=== PATIENT | male | born 1950 | race Caucasian/White ===

== ENCOUNTER 2021-12-13 16:00 | Observation (INO) | payer OTHER ==
[~2021-12-13] VITALS: Ht 180.3 cm; Wt 106.8 kg
[~2021-12-13 16:00] MED LIST: BISO1TAB99 PO; DIVA250T4 PO; DIVA500T2 PO; LEVO500T2 PO; TAMS-1 GT
[2021-12-13 16:42] LABS: BASOPHILS % (AUTO) 0.5 % (0.0-5.0); HEMATOCRIT 46.6 % (42-54); LYMPHOCYTES % (AUTO) 9.8 % (21.0-51.0); MEAN CORPUSCULAR HEMOGLOBIN 33.4 pg (27.0-33.0); MEAN CORPUSCULAR VOLUME 95.5 fL (79-99); MONOCYTES % (AUTO) 17.2 % (3.0-13.0); NEUTROPHILS % (AUTO) 72.3 % (40.0-77.0); PLATELET COUNT (AUTO) 142 K/uL (130-400); RED BLOOD CELL COUNT(AUTO) 4.88 MIL/uL (4.50-6.20); WHITE BLOOD COUNT (AUTO) 8.1 K/uL (4.8-10.8)
[2021-12-13 17:12] LABS: ALBUMIN 3.8 g/dL (3.5-5.0); CREATININE 1.2 mg/dL (0.5-1.5); POTASSIUM 4.4 mmol/L (3.5-5.1); TOTAL PROTEIN, SERUM 7.3 g/dL (6.0-8.3)
[2021-12-13 17:48] LABS: APPEARANCE,URINE CLEAR (CLEAR); BILIRUBIN,URINE NEGATIVE (NEGATIVE); COLOR,URINE YELLOW (YELLOW); GLUCOSE, URINE (UA) NEGATIVE (NEGATIVE); KETONES,URINE 5 mg/dL (NEGATIVE); LEUKOCYTE ESTERASE ,URINE NEGATIVE Leu/uL (NEGATIVE); NITRATE,URINE NEGATIVE (NEGATIVE); OCCULT BLOOD,URINE LARGE (NEGATIVE); PH,URINE 6.5 (5.0-8.0); PROTEIN,URINE 300 mg/dL (NEGATIVE); UROBILINOGEN,URINE 0.2 mg/dL (0.2-1.0)
[2021-12-13 17:55] LABS: AMPHET/METH SCREEN,URINE NEGATIVE (NEGATIVE); BARBITURATE SCREEN, URINE NEGATIVE (NEGATIVE); BENZODIAZEPINES SCREEN,URINE NEGATIVE (NEGATIVE); CANNABINOID SCREEN,URINE NEGATIVE (NEGATIVE); COCAINE SCREEN,URINE NEGATIVE (NEGATIVE); OPIATE SCREEN,URINE NEGATIVE (NEGATIVE); PHENCYCLIDINE SCREEN,URINE NEGATIVE (NEGATIVE)
[2021-12-13 17:56] LABS: BACTERIA,URINE RARE /HPF (None Seen); MUCUS,URINE FEW LPF (None Seen)
[2021-12-13] MEDS ORDERED: OSELTAMIVIR PHOSPHATE 75 MG CAP PO SCH (18:00)
[2021-12-13] MEDS ORDERED: ACETAMINOPHEN 500 MG TABLET PO ONE (18:00)
[2021-12-13] MEDS ORDERED: 0.9%NACL 1000ML 1,000 ML IV ONE (18:00)
[2021-12-13] MEDS ORDERED: VALPROIC ACID IV SCH (19:30)
[2021-12-13] MEDS ORDERED: PHARMACY COMMUNICATION MISC SCH (19:30)
[2021-12-13] MEDS ORDERED: [UNRECOGNIZED DRUG - OTHER] IV SCH (19:30)
[2021-12-13] MEDS ORDERED: ONDANSETRON 4MG INJ IV PRN (22:30)
[2021-12-13] MEDS ORDERED: ACETAMINOPHEN 325 MG TAB PO PRN ×2 (22:30)
[2021-12-13] MEDS ORDERED: LEVO100C4 PO (22:54)
[2021-12-13] MEDS ORDERED: BISO1TAB99 PO (22:54)
[2021-12-13] MEDS ORDERED: LEVE250T2 PO (22:54)
[2021-12-13] MEDS ORDERED: DIVA125T32 PO (22:54)
[2021-12-14] MEDS: 0.9%NACL 1000ML 1,000 ML IV SCH ×2 (00:19→18:30)
[2021-12-14] MEDS ORDERED: DIVALPROEX 125 MG PO SCH (00:30)
[2021-12-14 02:53] VITALS: BP 172/94
[2021-12-14 03:51] VITALS: BP 160/93
[2021-12-14 05:24] LABS: BASOPHILS % (AUTO) 0.5 % (0.0-5.0); EOSINOPHILS % (AUTO) 1.6 % (0.0-8.0); HEMATOCRIT 45.4 % (42-54); LYMPHOCYTES % (AUTO) 26.3 % (21.0-51.0); MEAN CORPUSCULAR HEMOGLOBIN 33.3 pg (27.0-33.0); MEAN CORPUSCULAR HGB CONC 34.8 g/dL (32.0-36.0); MEAN CORPUSCULAR VOLUME 95.6 fL (79-99); MONOCYTES % (AUTO) 21.1 % (3.0-13.0); NEUTROPHILS % (AUTO) 50.1 % (40.0-77.0); PLATELET COUNT (AUTO) 143 K/uL (130-400); RED BLOOD CELL COUNT(AUTO) 4.75 MIL/uL (4.50-6.20); RED CELL DISTRIBUTION WIDTH 12.9 % (11.0-15.5); WHITE BLOOD COUNT (AUTO) 7.5 K/uL (4.8-10.8)
[2021-12-14 05:44] LABS: CREATININE 1.1 mg/dL (0.5-1.5); MAGNESIUM 1.7 mg/dL (1.80-2.40); PHOSPHORUS 2.6 mg/dL (2.5-4.9); POTASSIUM 3.6 mmol/L (3.5-5.1); THYROID STIMULATING HORMONE 6.82 uIU/mL (0.36-3.74)
[2021-12-14] MEDS: LEVOTHYROXINE 100 MCG TABLET PO SCH (06:33)
[2021-12-14 08:00] VITALS: BP 143/81
[2021-12-14] MEDS ORDERED: VALPROATE SOD 250 MG/5 ML (PO) PO PRN (09:00)
[2021-12-14] MEDS: BISOPROLOL PO SCH (09:00)
[2021-12-14] MEDS: HCTZ PO SCH (09:00)
[2021-12-14] MEDS ORDERED: LEVETIRACETAM 250 MG TABLET PO SCH (09:00)
[2021-12-14] MEDS: OSELTAMIVIR PHOSPHATE 75 MG CAP PO SCH ×2 (09:54→20:09)
[2021-12-14] MEDS: PANTOPRAZOLE 40 MG TAB DR PO SCH (09:54)
[2021-12-14] MEDS: ENOXAPARIN SODIUM 40 MG/0.4 ML SYRINGE SQ SCH (09:54)
[2021-12-14] MEDS ORDERED: PHARMACY COMMUNICATION MISC SCH (10:30)
[2021-12-14 12:00] VITALS: BP 139/79
[2021-12-14] MEDS: DIVALPROEX SODIUM 250 MG TABLET.DR PO SCH (12:42)
[2021-12-14 16:00] VITALS: BP 152/95
[2021-12-14 20:00] VITALS: BP 130/84
[2021-12-14] MEDS: LEVETIRACETAM 250 MG TABLET PO SCH (20:09)
[2021-12-14] MEDS ORDERED: DIVALPROEX SODIUM 250 MG TABLET.DR PO SCH (21:00)
[2021-12-15] VITALS: BP 140/95
[2021-12-15 04:00] VITALS: BP 139/85
[2021-12-15] MEDS: LEVOTHYROXINE 100 MCG TABLET PO SCH (06:24)
[2021-12-15 08:00] VITALS: BP 118/83
[2021-12-15] MEDS ORDERED: MAGNESIUM 2GM PREMIX 50ML 50 ML IV PRN (08:00)
[2021-12-15] MEDS ORDERED: LEVE250T PO (08:08)
[2021-12-15] MEDS: OSELTAMIVIR PHOSPHATE 75 MG CAP PO SCH (08:30)
[2021-12-15] MEDS: LEVETIRACETAM 250 MG TABLET PO SCH (08:31)
[2021-12-15] MEDS: ENOXAPARIN SODIUM 40 MG/0.4 ML SYRINGE SQ SCH (08:31)
[2021-12-15] MEDS: PANTOPRAZOLE 40 MG TAB DR PO SCH (08:31)
[2021-12-15] MEDS ORDERED: DIVALPROEX SODIUM 250 MG TABLET.DR PO SCH (09:00)
[2021-12-15] MEDS: BISOPROLOL PO SCH (09:14)
[2021-12-15] MEDS: HCTZ PO SCH (09:14)
[2021-12-15 12:00] VITALS: BP 137/89
[2021-12-15] MEDS: DIVALPROEX SODIUM 250 MG TABLET.DR PO SCH (12:19)
[2021-12-15] MEDS ORDERED: OSEL75 PO (12:59)
== END 2021-12-15 13:50 | disposition home or self-care (01) ==
LOC: EDH 16:00 → EDHIP 22:17 → INTOOBSV 22:17 → 3BH 12-14 02:27
PROVIDERS: ADMIT Internal Medicine; ATTEND Internal Medicine
DX: G40.909 Epilepsy, unspecified, not intractable, without status epilepticus (principal); Z20.822 Contact with and (suspected) exposure to COVID-19; J10.1 Influenza due to other identified influenza virus with other respiratory manifestations; I10 Essential (primary) hypertension; E03.9 Hypothyroidism, unspecified; E78.00 Pure hypercholesterolemia, unspecified
CPT/HCPCS: 96365; 80164; 82550; 80053; 80305; 85025 ×2; 87804 ×2; 83605 ×2; 81001; 36415 ×2; 87635; 71045; 70450; 74176; 99291; 84145; 96372 ×2; 96361 ×2; 84443; 83735; 84100; 80048; 84439; 97161; 97039; 97116; 92610; 96366; 96367; C9803; J7030 ×2; J1650 ×2; G0378 ×3; J3475

== ENCOUNTER 2022-06-16 02:57 | Observation (INO) | payer OTHER ==
[~2022-06-16] VITALS: Ht 180.3 cm; Wt 106.6 kg
[~2022-06-16 02:57] MED LIST changes: +DIVA125T32 PO; -DIVA250T4 PO; -DIVA500T2 PO; +LEVE250T PO; +LEVO100C4 PO; -LEVO500T2 PO; +OSEL75 PO; -TAMS-1 GT
[2022-06-16 03:37] LABS: EOSINOPHILS % (AUTO) 0.8 % (0.0-8.0); HEMATOCRIT 41.6 % (42-54); LYMPHOCYTES % (AUTO) 31.9 % (21.0-51.0); MEAN CORPUSCULAR HEMOGLOBIN 32.6 pg (27.0-33.0); MEAN CORPUSCULAR HGB CONC 33.9 g/dL (32.0-36.0); MEAN CORPUSCULAR VOLUME 96.1 fL (79-99); NEUTROPHILS % (AUTO) 39.8 % (40.0-77.0); PLATELET COUNT (AUTO) 129 K/uL (130-400); RED BLOOD CELL COUNT(AUTO) 4.33 MIL/uL (4.50-6.20); RED CELL DISTRIBUTION WIDTH 13.6 % (11.0-15.5); WHITE BLOOD COUNT (AUTO) 6.3 K/uL (4.8-10.8)
[2022-06-16 03:43] LABS: INR 1.03 (0.85-1.15); PROTHROMBIN TIME 11.2 SEC (9.6-11.6)
[2022-06-16 03:44] LABS: PARTIAL THROMBOPLASTIN TIME 28.5 SEC (26.3-35.5)
[2022-06-16] MEDS ORDERED: ACETAMINOPHEN 500 MG TABLET ONE (03:48)
[2022-06-16 03:49] LABS: CREATININE 1.1 mg/dL (0.5-1.5); POTASSIUM 4.5 mmol/L (3.5-5.1)
[2022-06-16 03:56] LABS: ALBUMIN 3.7 g/dL (3.5-5.0); TOTAL PROTEIN, SERUM 6.3 g/dL (6.0-8.3)
[2022-06-16 04:02] LABS: INFLUENZA TYPE A NEGATIVE FOR TYPE A (NEG); INFLUENZA TYPE B NEGATIVE FOR TYPE B (NEG)
[2022-06-16] MEDS ORDERED: ACETAMINOPHEN 500 MG TABLET PO ONE (04:30)
[2022-06-16] MEDS ORDERED: ACETAMINOPHEN 325 MG TAB PO PRN ×2 (05:30)
[2022-06-16] MEDS ORDERED: NITROGLYCERIN 0.4 MG SL TAB SL PRN (05:30)
[2022-06-16] MEDS ORDERED: ONDANSETRON 4MG INJ IV PRN (05:30)
[2022-06-16] MEDS ORDERED: LEVETIRACETAM 500 MG/5 ML SD VIAL IV SCH (05:30)
[2022-06-16] MEDS ORDERED: ZINC220T4 PO (08:35)
[2022-06-16] MEDS ORDERED: LEVE250T2 PO (08:35)
[2022-06-16] MEDS ORDERED: BENZ200C53 PO (08:35)
[2022-06-16] MEDS ORDERED: CHOL100046 PO (08:35)
[2022-06-16] MEDS ORDERED: CLIN-141 PO (08:35)
[2022-06-16] MEDS ORDERED: DIVA125T32 PO (08:35)
[2022-06-16] MEDS ORDERED: MAGN250T35 PO (08:35)
[2022-06-16] MEDS ORDERED: BISO10TA16 PO (08:35)
[2022-06-16] MEDS ORDERED: LEVO100C4 PO (08:35)
[2022-06-16] MEDS: FAMOTIDINE 20MG TAB PO SCH ×2 (08:44→20:08)
[2022-06-16] MEDS: ENOXAPARIN SODIUM 30 MG/0.3 ML SQ SCH (08:44)
[2022-06-16] MEDS ORDERED: CLINDAMYCIN 150 MG CAP PO SCH (09:00)
[2022-06-16] MEDS ORDERED: NON-FORMULARY MEDICATION 1 EACH (Levothyroxine Sodium (Levothyroxine) 100 MCG) PO SCH (09:00)
[2022-06-16] MEDS ORDERED: NON-FORMULARY MEDICATION 1 EACH (Benzonatate 200 MG) PO SCH (09:00)
[2022-06-16] MEDS ORDERED: DIVALPROEX SODIUM 125 MG PO SCH (09:00)
[2022-06-16] MEDS ORDERED: PHARMACY COMMUNICATION MISC SCH (09:30)
[2022-06-16 10:10] VITALS: BP 156/86
[2022-06-16 11:00] VITALS: BP 145/80
[2022-06-16] MEDS: BENZONATATE 100 MG CAPSULE PO SCH ×2 (14:32→22:52)
[2022-06-16 16:00] VITALS: BP 154/87
[2022-06-16 19:00] VITALS: BP 157/83
[2022-06-16] MEDS: LEVETIRACETAM 250 MG TABLET PO SCH (20:07)
[2022-06-16] MEDS: DIVALPROEX SODIUM 250 MG TABLET.DR PO SCH (20:07)
[2022-06-17] VITALS: BP 161/99
[2022-06-17 04:00] VITALS: BP 160/87
[2022-06-17 05:58] LABS: ALBUMIN 3.3 g/dL (3.5-5.0); POTASSIUM 3.9 mmol/L (3.5-5.1); TOTAL PROTEIN, SERUM 6.2 g/dL (6.0-8.3)
[2022-06-17] MEDS: BENZONATATE 100 MG CAPSULE PO SCH ×2 (06:10→11:36)
[2022-06-17] MEDS ORDERED: LEVOTHYROXINE 100 MCG TABLET PO SCH (06:30)
[2022-06-17 08:00] VITALS: BP 159/91
[2022-06-17 08:09] LABS: BASOPHILS % (AUTO) 0.9 % (0.0-5.0); EOSINOPHILS % (AUTO) 0.2 % (0.0-8.0); HEMATOCRIT 41.8 % (42-54); LYMPHOCYTES % (AUTO) 54.1 % (21.0-51.0); MEAN CORPUSCULAR HEMOGLOBIN 32.5 pg (27.0-33.0); MEAN CORPUSCULAR HGB CONC 34.2 g/dL (32.0-36.0); MONOCYTES % (AUTO) 19.6 % (3.0-13.0); PLATELET COUNT (AUTO) 101 K/uL (130-400); RED CELL DISTRIBUTION WIDTH 13.6 % (11.0-15.5); WHITE BLOOD COUNT (AUTO) 4.3 K/uL (4.8-10.8)
[2022-06-17] MEDS: ENOXAPARIN SODIUM 30 MG/0.3 ML SQ SCH (08:15)
[2022-06-17] MEDS: FAMOTIDINE 20MG TAB PO SCH (08:15)
[2022-06-17] MEDS: LEVETIRACETAM 250 MG TABLET PO SCH (08:15)
[2022-06-17] MEDS: DIVALPROEX SODIUM 250 MG TABLET.DR PO SCH (08:20)
[2022-06-17] MEDS ORDERED: BISOPROLOL FUMARATE 10 MG PO SCH (09:00)
[2022-06-17] MEDS ORDERED: (Cholecalciferol (Vitamin D3) (Vitamin D3) 25 MCG) PO SCH (09:00)
[2022-06-17] MEDS ORDERED: (Zinc Sulfate (Zinc) 50 MG) PO SCH (09:00)
[2022-06-17] MEDS ORDERED: MAGNESIUM 500 MG PO SCH (09:00)
[2022-06-17 12:00] VITALS: BP 164/70
[2022-06-17] MEDS ORDERED: DIVALPROEX SODIUM 250 MG TABLET.DR PO SCH (12:00)
[2022-06-17] MEDS ORDERED: LEVE250T PO (12:28)
[2022-06-17 16:00] VITALS: BP 155/96
== END 2022-06-17 19:30 | disposition home or self-care (01) ==
LOC: EDH 02:57 → INTOOBSV 05:26 → EDHIP 05:26 → 4CH 10:10
PROVIDERS: ADMIT Internal Medicine; ATTEND Internal Medicine
DX: U07.1 COVID-19 (principal); G40.409 Other generalized epilepsy and epileptic syndromes, not intractable, without status epilepticus; E87.1 Hypo-osmolality and hyponatremia; I10 Essential (primary) hypertension; E03.9 Hypothyroidism, unspecified; E78.00 Pure hypercholesterolemia, unspecified; Z78.9 Other specified health status; Z85.828 Personal history of other malignant neoplasm of skin; Z90.49 Acquired absence of other specified parts of digestive tract; Z79.899 Other long term (current) drug therapy; Z98.890 Other specified postprocedural states; W06.XXXA Fall from bed, initial encounter; Y92.89 Other specified places as the place of occurrence of the external cause; Y93.89 Activity, other specified; Y99.8 Other external cause status
CPT/HCPCS: 96372 ×2; 96365; 96366; 99285; 80164; 84443; 82550 ×2; 84484 ×2; 80053 ×2; 85025 ×2; 85378 ×2; 85610; 85730; 87040 ×2; 87804 ×2; 83605 ×2; 36415 ×2; 87635; 71045; 70450; 93005; 80177; 84145 ×2; 83615; 82948; 71250; C9803; J1953; J1650 ×2; G0378 ×6

== ENCOUNTER 2023-11-27 16:50 | Inpatient (IN) | payer MEDICARE, OTHER ==
[~2023-11-27] VITALS: Ht 177.8 cm; Wt 124.3 kg
[~2023-11-27 16:50] MED LIST changes: +BENZ200C53 PO; +BISO10TA16 PO; +CHOL100046 PO; +CLIN-141 PO; +MAGN250T35 PO; -OSEL75 PO; +ZINC220T4 PO; +rocuRONium bROMide 10MG/1ML 5ML VL IV ONE
[2023-11-27 17:25] VITALS: PULSE 96; RESP 24; O2SAT 90
[2023-11-27 17:30] LABS: ABG BASE EXCESS 2.2 mmol/L (-2.0-3.0); ABG HCO3 24.6 mmol/L (21.0-28.0); ABG OXYGEN SATURATION 90.8 % (94.0-98.0); ABG PCO2 32 mmHg (35-48); ABG PH 7.502 (7.350-7.450); PO2, ARTERIAL BG 53.5 mmHg (83.0-108.0); VENT MODE, BG RA (ROOM AIR)
[2023-11-27 17:35] LABS: BASOPHILS # (AUTO) 0.03 K/uL (0.00-0.20); BASOPHILS % (AUTO) 0.2 % (0.0-5.0); HEMATOCRIT 48.3 % (42-54); IMMATURE GRANULOCYTE ABSOLUTE 0.12 K/uL (0-1); LYMPHOCYTES # (AUTO) 2.4 K/uL (1.0-4.8); LYMPHOCYTES % (AUTO) 12.6 % (21.0-51.0); MEAN CORPUSCULAR HEMOGLOBIN 33.6 pg (27.0-33.0); MEAN CORPUSCULAR HGB CONC 34.6 g/dL (32.0-36.0); MEAN CORPUSCULAR VOLUME 97.2 fL (79-99); MONOCYTES # (AUTO) 3.2 K/uL (0.1-1.0); NEUTROPHILS # (AUTO) 13.3 K/uL (1.8-7.7); NEUTROPHILS % (AUTO) 69.6 % (40.0-77.0); PLATELET COUNT (AUTO) 124 K/uL (130-400); RED BLOOD CELL COUNT(AUTO) 4.97 MIL/uL (4.50-6.20); RED CELL DISTRIBUTION WIDTH 14.7 % (11.0-15.5); WHITE BLOOD COUNT (AUTO) 19.1 K/uL (4.8-10.8)
[2023-11-27 18:14] LABS: SARS-CoV-2, RNA, NAAT NEGATIVE SARS CoV-2 (NEGATIVE)
[2023-11-27 18:15] LABS: INFLUENZA TYPE A Negative For Type A (NEGATIVE); INFLUENZA TYPE B Negative For Type B (NEGATIVE)
[2023-11-27 18:32] LABS: APPEARANCE,URINE CLEAR (CLEAR); BILIRUBIN,URINE 0.5 mg/dL (NEGATIVE); COLOR,URINE YELLOW (YELLOW); GLUCOSE, URINE (UA) 30 mg/dL (NEGATIVE); KETONES,URINE 20 mg/dL (NEGATIVE); LEUKOCYTE ESTERASE ,URINE NEGATIVE Leu/uL (NEGATIVE); NITRATE,URINE NEGATIVE (NEGATIVE); OCCULT BLOOD,URINE LARGE (NEGATIVE); PROTEIN,URINE 200 mg/dL (NEGATIVE); UROBILINOGEN,URINE 6 mg/dL (0.2-1.0)
[2023-11-27 18:34] LABS: ADD UA MICROSCOPIC YES
[2023-11-27] MEDS ORDERED: ATEN50TA PO (18:39)
[2023-11-27] MEDS ORDERED: LEVE500T98 PO (18:39)
[2023-11-27] MEDS ORDERED: AEC81 PO (18:40)
[2023-11-27] MEDS ORDERED: DIVA-76 PO (18:40)
[2023-11-27] MEDS ORDERED: ATOR40TA69 PO (18:40)
[2023-11-27 18:44] LABS: BACTERIA,URINE RARE /HPF (None Seen); MUCUS,URINE FEW LPF (None Seen); SQUAMOUS EPITHELIAL CELL,UR RARE /HPF (0-2); YEAST,URINE BUDDING RARE /HPF (None Seen)
[2023-11-27 19:56] LABS: CREATININE 1.2 mg/dL (0.5-1.3)
[2023-11-27 20:01] LABS: ALBUMIN 2.5 g/dL (3.5-5.0); BILIRUBIN,TOTAL 1.6 mg/dL (0.2-1.0); TOTAL PROTEIN, SERUM 7.2 g/dL (6.0-8.3)
[2023-11-27] MEDS: ceFEPime HCL 2 GM VIAL IVPB SCH (20:11)
[2023-11-27] MEDS: VANCOMYCIN HCL 1.5 GM/250 ML BAG IV ONE (20:16)
[2023-11-27] MEDS: ketaMINE 50MG/ML SYRINGE 50 MG/ML DISP.SYRIN IM ONE (20:31)
[2023-11-27] MEDS: rocuRONium bROMide 10MG/1ML 5ML VL IV ONE (20:33)
[2023-11-27 20:34] VITALS: PULSE 100; O2SAT 96
[2023-11-27] MEDS: MIDAZOLAM HCL 5 MG/ML 2ML VIAL IV ONE ×2 (20:35→21:06)
[2023-11-27] MEDS ORDERED: 0.9%NACL 1000ML 1,000 ML IV SCH (21:00)
[2023-11-27] MEDS ORDERED: MIDAZOLAM HCL 1 MG/ML 5ML VIAL IVP ONE (21:00)
[2023-11-27] MEDS ORDERED: PHARMACY COMMUNICATION MISC SCH (21:00)
[2023-11-27] MEDS: proPOFol 1000 MG/100 ML IV PRN (21:02)
[2023-11-27] MEDS: NOREPINEPHRIN 4MG/NS 250ML 250 ML IV ONE (21:02)
[2023-11-27] MEDS: acetaMINOPHEN 500 MG TABLET ONE (21:06)
[2023-11-27] MEDS: ketaMINE 50MG/ML SYRINGE 50 MG/ML DISP.SYRIN ONE (21:06)
[2023-11-27] MEDS: proPOFol 1000 MG/100 ML 100 ML IV ONE (21:07)
[2023-11-27] MEDS ORDERED: ondanSETRON 4MG INJ IV PRN (21:30)
[2023-11-27] MEDS ORDERED: DEXTROSE 50%-WATER 50 ML DISP.SYRIN IV PRN (21:30)
[2023-11-27] MEDS ORDERED: VANCOMYCIN PROTOCOL PER PHARMACY IV PRN (21:30)
[2023-11-27] MEDS ORDERED: GLUCAGON 1MG KIT 1 MG ML IM PRN (21:30)
[2023-11-27] MEDS: ketaMINE 50MG/ML SYRINGE 50 MG/ML DISP.SYRIN IV ONE (21:37)
[2023-11-27 21:55] LABS: ABG BASE EXCESS -2.3 mmol/L (-2.0-3.0); ABG HCO3 20.1 mmol/L (21.0-28.0); ABG OXYGEN SATURATION 99.6 % (94.0-98.0); ABG PCO2 30 mmHg (35-48); ABG PH 7.449 (7.350-7.450); CARBON MONOXIDE 0.4 % (0.5-1.5); DEVICE COMMENT RR ZULEMARN; HHb 0.4; PO2, ARTERIAL BG 321.4 mmHg (83.0-108.0); VENT MODE, BG AC (ROOM AIR)
[2023-11-27 22:00] VITALS: PULSE 82; O2SAT 100
[2023-11-27] MEDS ORDERED: MIDAZOLAM 100MG-0.9% NS 100ML 100ML BAG IV ONE (22:00)
[2023-11-27] MEDS: MIDAZOLAM 50MG-0.9% NS 50ML 50 ML IV ONE (22:20)
[2023-11-27] MEDS: FENTanyl 1000MCG+NS 100ML 100 ML IV SCH (22:21)
[2023-11-27] MEDS: 0.9%NACL 1000ML 1,000 ML IV SCH (23:10)
[2023-11-27] MEDS: leveTIRACEtam 500 MG/5 ML SD VIAL IV SCH (23:33)
[2023-11-28] VITALS (68 sets, daily range): BP systolic 100–179; BP diastolic 50–89; PULSE 49–92; RESP 15–21; TEMP 99.1–100; O2SAT 95–100
[2023-11-28 04:18] LABS: BASOPHILS # (AUTO) 0.06 K/uL (0.00-0.20); BASOPHILS % (AUTO) 0.3 % (0.0-5.0); IMMATURE GRANULOCYTE ABSOLUTE 0.29 K/uL (0-1); LYMPHOCYTES # (AUTO) 2.4 K/uL (1.0-4.8); LYMPHOCYTES % (AUTO) 11.5 % (21.0-51.0); MEAN CORPUSCULAR HEMOGLOBIN 32.8 pg (27.0-33.0); MEAN CORPUSCULAR HGB CONC 33.9 g/dL (32.0-36.0); MEAN CORPUSCULAR VOLUME 96.6 fL (79-99); MONOCYTES # (AUTO) 3.2 K/uL (0.1-1.0); MONOCYTES % (AUTO) 15.7 % (3.0-13.0); NEUTROPHILS # (AUTO) 14.4 K/uL (1.8-7.7); NEUTROPHILS % (AUTO) 70.1 % (40.0-77.0); NUCLEATED RED BLOOD CELLS 0.1 % (0.0-0.19); PLATELET COUNT (AUTO) 151 K/uL (130-400); RED BLOOD CELL COUNT(AUTO) 4.76 MIL/uL (4.50-6.20); RED CELL DISTRIBUTION WIDTH 14.4 % (11.0-15.5); WHITE BLOOD COUNT (AUTO) 20.5 K/uL (4.8-10.8)
[2023-11-28 04:30] LABS: ALBUMIN 2.1 g/dL (3.5-5.0); BILIRUBIN,DIRECT 2.6 mg/dL (0.0-0.3); BILIRUBIN,TOTAL 3.7 mg/dL (0.2-1.0); CREATININE 1.6 mg/dL (0.5-1.3); MAGNESIUM 1.6 mg/dL (1.80-2.40); TOTAL PROTEIN, SERUM 6.5 g/dL (6.0-8.3)
[2023-11-28 04:53] LABS: B-TYPE NATRIURETIC PEPTIDE 197 pg/mL (0-100)
[2023-11-28] MEDS: NOREPINEPHRIN 4MG/NS 250ML 250 ML IV SCH (05:21)
[2023-11-28] MEDS: MAGNESIUM 2GM PREMIX 50ML 50 ML IV PRN (06:40)
[2023-11-28] MEDS: FAMOTIDINE 20MG VIAL IV SCH (07:59)
[2023-11-28] MEDS: divALPRoex SOdium 250 MG TAB PO SCH (09:00)
[2023-11-28] MEDS ORDERED: levoTHYROxine 100 MCG TABLET PO SCH (09:00)
[2023-11-28] MEDS: atorVAStatin 40 MG TABLET PO SCH (09:16)
[2023-11-28] MEDS: ASPIRIN 81 MG EC TAB PO SCH (09:16)
[2023-11-28] MEDS: 0.9%NACL 1000ML 1,461 ML IV ONE (09:17)
[2023-11-28 12:29] LABS: ABG BASE EXCESS -2.9 mmol/L (-2.0-3.0); ABG HCO3 20.6 mmol/L (21.0-28.0); ABG OXYGEN SATURATION 94.8 % (94.0-98.0); ABG PCO2 32 mmHg (35-48); ABG PH 7.421 (7.350-7.450); CARBON MONOXIDE 0.3 % (0.5-1.5); DEVICE COMMENT RR; HHb 5.2; PO2, ARTERIAL BG 75.3 mmHg (83.0-108.0); VENT MODE, BG AC (ROOM AIR)
[2023-11-28] MEDS: VANCOMYCIN 1.5 GM/250 ML BAG 250 ML IV SCH (20:58)
[2023-11-28] MEDS: PANTOPrazole 40 MG/VIAL IVP SCH (20:58)
[2023-11-29] VITALS (50 sets, daily range): BP systolic 91–168; BP diastolic 52–98; PULSE 63–112; RESP 16–27; TEMP 100–100.2; O2SAT 95–100
[2023-11-29 03:42] LABS: BASOPHILS # (AUTO) 0.03 K/uL (0.00-0.20); BASOPHILS % (AUTO) 0.2 % (0.0-5.0); HEMATOCRIT 39.9 % (42-54); IMMATURE GRANULOCYTE ABSOLUTE 0.07 K/uL (0-1); LYMPHOCYTES # (AUTO) 1.2 K/uL (1.0-4.8); LYMPHOCYTES % (AUTO) 9.2 % (21.0-51.0); MEAN CORPUSCULAR HEMOGLOBIN 32.8 pg (27.0-33.0); MEAN CORPUSCULAR HGB CONC 33.6 g/dL (32.0-36.0); MEAN CORPUSCULAR VOLUME 97.6 fL (79-99); MONOCYTES # (AUTO) 1.6 K/uL (0.1-1.0); MONOCYTES % (AUTO) 12.8 % (3.0-13.0); NEUTROPHILS # (AUTO) 9.6 K/uL (1.8-7.7); NEUTROPHILS % (AUTO) 77.2 % (40.0-77.0); PLATELET COUNT (AUTO) 113 K/uL (130-400); RED BLOOD CELL COUNT(AUTO) 4.09 MIL/uL (4.50-6.20); RED CELL DISTRIBUTION WIDTH 14.9 % (11.0-15.5); WHITE BLOOD COUNT (AUTO) 12.5 K/uL (4.8-10.8)
[2023-11-29 03:50] LABS: ALBUMIN 1.6 g/dL (3.5-5.0); BILIRUBIN,TOTAL 0.9 mg/dL (0.2-1.0); CREATININE 1.1 mg/dL (0.5-1.3); POTASSIUM 4.1 mmol/L (3.5-5.1); TOTAL PROTEIN, SERUM 5.6 g/dL (6.0-8.3)
[2023-11-29] MEDS: levoTHYROxine 100 MCG TABLET PO SCH (06:41)
[2023-11-29 07:41] LABS: ABG BASE EXCESS -1.9 mmol/L (-2.0-3.0); ABG HCO3 21.5 mmol/L (21.0-28.0); ABG OXYGEN SATURATION 95.2 % (94.0-98.0); ABG PCO2 33 mmHg (35-48); ABG PH 7.431 (7.350-7.450); PO2, ARTERIAL BG 72.9 mmHg (83.0-108.0); VENT MODE, BG CPAP 5,10 (ROOM AIR)
[2023-11-29] MEDS: hydrALAZine 20MG/ML VIAL IV PRN (09:58)
[2023-11-29] MEDS: furoSEMIDE 40MG VIAL IV ONE (09:59)
[2023-11-29] MEDS: dexmedeTOMIDine 400MCG/NS100ML IV SCH (18:08)
[2023-11-29] MEDS: ceFEPime HCL 2 GM VIAL IVPB SCH (23:12)
[2023-11-30] VITALS (63 sets, daily range): BP systolic 87–127; BP diastolic 50–74; PULSE 51–88; RESP 13–26; TEMP 96.8–99.8; O2SAT 93–100
[2023-11-30 04:25] LABS: BASOPHILS # (AUTO) 0.02 K/uL (0.00-0.20); BASOPHILS % (AUTO) 0.2 % (0.0-5.0); HEMATOCRIT 36.9 % (42-54); IMMATURE GRANULOCYTE ABSOLUTE 0.06 K/uL (0-1); LYMPHOCYTES # (AUTO) 0.9 K/uL (1.0-4.8); LYMPHOCYTES % (AUTO) 8.5 % (21.0-51.0); MEAN CORPUSCULAR HEMOGLOBIN 32.7 pg (27.0-33.0); MEAN CORPUSCULAR HGB CONC 33.6 g/dL (32.0-36.0); MEAN CORPUSCULAR VOLUME 97.4 fL (79-99); MONOCYTES # (AUTO) 1.2 K/uL (0.1-1.0); MONOCYTES % (AUTO) 12.1 % (3.0-13.0); NEUTROPHILS # (AUTO) 7.9 K/uL (1.8-7.7); NEUTROPHILS % (AUTO) 78.6 % (40.0-77.0); PLATELET COUNT (AUTO) 127 K/uL (130-400); RED BLOOD CELL COUNT(AUTO) 3.79 MIL/uL (4.50-6.20); RED CELL DISTRIBUTION WIDTH 15.3 % (11.0-15.5); WHITE BLOOD COUNT (AUTO) 10.1 K/uL (4.8-10.8)
[2023-11-30 04:50] LABS: ALBUMIN 1.4 g/dL (3.5-5.0); BILIRUBIN,TOTAL 0.6 mg/dL (0.2-1.0); POTASSIUM 3.6 mmol/L (3.5-5.1); TOTAL PROTEIN, SERUM 5.4 g/dL (6.0-8.3)
[2023-11-30] MEDS: furoSEMIDE 40MG VIAL IV SCH (08:33)
[2023-11-30] MEDS: ATENOLOL 50 MG TABLET PO SCH (08:40)
[2023-11-30] MEDS: PoTASSium chloRIDE 20MEQ/100ML 100 ML IV PRN (08:59)
[2023-11-30] MEDS: IpraTROPium/alBUTERol SULFATE 3 ML SOLUTION IH SCH (18:36)
[2023-11-30] MEDS: VALPROATE SOD 250 MG/5 ML (PO) PO SCH (20:42)
[2023-11-30 21:12] LABS: MAGNESIUM 2.2 mg/dL (1.80-2.40); POTASSIUM 3.9 mmol/L (3.5-5.1)
[2023-12-01] VITALS (51 sets, daily range): BP systolic 119–156; BP diastolic 65–100; PULSE 70–94; RESP 14–27; TEMP 95.9–99; O2SAT 91–99
[2023-12-01 04:40] LABS: BASOPHILS # (AUTO) 0.04 K/uL (0.00-0.20); BASOPHILS % (AUTO) 0.3 % (0.0-5.0); EOSINOPHILS # (AUTO) 0.01 K/uL (0.00-0.70); EOSINOPHILS % (AUTO) 0.1 % (0.0-8.0); HEMATOCRIT 36.5 % (42-54); IMMATURE GRANULOCYTE ABSOLUTE 0.16 K/uL (0-1); LYMPHOCYTES # (AUTO) 1.2 K/uL (1.0-4.8); LYMPHOCYTES % (AUTO) 10.2 % (21.0-51.0); MEAN CORPUSCULAR HEMOGLOBIN 32.8 pg (27.0-33.0); MEAN CORPUSCULAR VOLUME 96.6 fL (79-99); MONOCYTES # (AUTO) 1.5 K/uL (0.1-1.0); MONOCYTES % (AUTO) 12.5 % (3.0-13.0); NEUTROPHILS # (AUTO) 8.9 K/uL (1.8-7.7); NEUTROPHILS % (AUTO) 75.5 % (40.0-77.0); PLATELET COUNT (AUTO) 148 K/uL (130-400); RED BLOOD CELL COUNT(AUTO) 3.78 MIL/uL (4.50-6.20); RED CELL DISTRIBUTION WIDTH 15.9 % (11.0-15.5); WHITE BLOOD COUNT (AUTO) 11.8 K/uL (4.8-10.8)
[2023-12-01 05:08] LABS: ALBUMIN 1.4 g/dL (3.5-5.0); BILIRUBIN,TOTAL 0.5 mg/dL (0.2-1.0); POTASSIUM 3.9 mmol/L (3.5-5.1); TOTAL PROTEIN, SERUM 5.5 g/dL (6.0-8.3)
[2023-12-01] MEDS: VANCOMYCIN 1G/250ML KIT 250 ML IV SCH (09:20)
[2023-12-01 11:57] LABS: MAGNESIUM 2.1 mg/dL (1.80-2.40); POTASSIUM 3.8 mmol/L (3.5-5.1)
[2023-12-01] MEDS: leveTIRACEtam 500 MG TABLET PO SCH (13:33)
[2023-12-02] VITALS (11 sets, daily range): BP systolic 139–157; BP diastolic 76–86; PULSE 55–81; RESP 18–20; TEMP 97.9–99; O2SAT 93–96
[2023-12-02 03:26] LABS: BASOPHILS # (AUTO) 0.01 K/uL (0.00-0.20); BASOPHILS % (AUTO) 0.1 % (0.0-5.0); EOSINOPHILS # (AUTO) 0.03 K/uL (0.00-0.70); EOSINOPHILS % (AUTO) 0.3 % (0.0-8.0); HEMATOCRIT 36.7 % (42-54); IMMATURE GRANULOCYTE ABSOLUTE 0.46 K/uL (0-1); LYMPHOCYTES # (AUTO) 1.7 K/uL (1.0-4.8); LYMPHOCYTES % (AUTO) 16.5 % (21.0-51.0); MEAN CORPUSCULAR HEMOGLOBIN 32.6 pg (27.0-33.0); MEAN CORPUSCULAR HGB CONC 33.5 g/dL (32.0-36.0); MEAN CORPUSCULAR VOLUME 97.3 fL (79-99); MONOCYTES # (AUTO) 1.3 K/uL (0.1-1.0); MONOCYTES % (AUTO) 12.2 % (3.0-13.0); NEUTROPHILS # (AUTO) 6.8 K/uL (1.8-7.7); NEUTROPHILS % (AUTO) 66.4 % (40.0-77.0); PLATELET COUNT (AUTO) 162 K/uL (130-400); RED BLOOD CELL COUNT(AUTO) 3.77 MIL/uL (4.50-6.20); RED CELL DISTRIBUTION WIDTH 16.2 % (11.0-15.5); WHITE BLOOD COUNT (AUTO) 10.3 K/uL (4.8-10.8)
[2023-12-02 03:40] LABS: ALBUMIN 1.5 g/dL (3.5-5.0); BILIRUBIN,TOTAL 0.6 mg/dL (0.2-1.0); CREATININE 0.9 mg/dL (0.5-1.3); POTASSIUM 3.5 mmol/L (3.5-5.1); TOTAL PROTEIN, SERUM 5.6 g/dL (6.0-8.3)
[2023-12-02] MEDS: MIDAZOLAM HCL 1 MG/ML 2ML VIAL IVP ONE (07:00)
[2023-12-02] MEDS: FENTanyl CITRate PF 50 MCG/1 ML 2ML VIAL IVP ONE (07:00)
[2023-12-02 12:55] LABS: INR 1.16 (0.85-1.15); PROTHROMBIN TIME 12.4 SEC (9.6-11.6)
[2023-12-02 12:56] LABS: PARTIAL THROMBOPLASTIN TIME 28.8 SEC (26.3-35.5)
[2023-12-02] MEDS ORDERED: HEParin 5,000 UNIT VIAL IV PRN (15:30)
[2023-12-02] MEDS: levoFLOXacin 500 MG/D5W 100 ML 100 ML IV SCH (16:17)
[2023-12-02] MEDS: HEParin 25,000 UNITS/250ML D5W 250 ML IV SCH (16:26)
[2023-12-03] VITALS (12 sets, daily range): BP systolic 124–166; BP diastolic 50–87; PULSE 54–75; RESP 16–20; TEMP 97.5–98.8; O2SAT 94–95
[2023-12-03] MEDS: APIXaban 5 MG TABLET PO SCH (08:55)
[2023-12-03 10:56] LABS: BASOPHILS # (AUTO) 0.03 K/uL (0.00-0.20); BASOPHILS % (AUTO) 0.3 % (0.0-5.0); EOSINOPHILS % (AUTO) 0.9 % (0.0-8.0); HEMATOCRIT 39.7 % (42-54); IMMATURE GRANULOCYTE ABSOLUTE 1.35 K/uL (0-1); LYMPHOCYTES # (AUTO) 2.2 K/uL (1.0-4.8); LYMPHOCYTES % (AUTO) 19.4 % (21.0-51.0); MEAN CORPUSCULAR HEMOGLOBIN 32.9 pg (27.0-33.0); MEAN CORPUSCULAR HGB CONC 33.2 g/dL (32.0-36.0); MONOCYTES # (AUTO) 1.4 K/uL (0.1-1.0); MONOCYTES % (AUTO) 12.4 % (3.0-13.0); NEUTROPHILS # (AUTO) 6.4 K/uL (1.8-7.7); NEUTROPHILS % (AUTO) 55.2 % (40.0-77.0); NUCLEATED RED BLOOD CELLS 0.2 % (0.0-0.19); PLATELET COUNT (AUTO) 199 K/uL (130-400); RED BLOOD CELL COUNT(AUTO) 4.01 MIL/uL (4.50-6.20); WHITE BLOOD COUNT (AUTO) 11.5 K/uL (4.8-10.8)
[2023-12-03 11:07] LABS: CREATININE 0.9 mg/dL (0.5-1.3); POTASSIUM 3.6 mmol/L (3.5-5.1)
[2023-12-03 11:48] LABS: BAND NEUTROPHILS % (MANUAL) 2 % (0-2); BASOPHILS % (MANUAL) 1 % (0-2); EOSINOPHILS % (MANUAL) 2 % (1-6); LYMPHOCYTES % (MANUAL) 29 % (22-44); MAN.DIFF COMMENT-IMPRESSION MANUAL DIFFERENTIAL; MONOCYTES % (MANUAL) 10 % (2-9); PLATELET MORPHOLOGY COMMENT ADEQUATE; REACTIVE LYMPHOCYTES 6 % (0-0); SEGMENTED NEUTROPHILS % 50 % (40-70); TOTAL CELLS COUNTED 100
[2023-12-04] VITALS (12 sets, daily range): BP systolic 141–166; BP diastolic 72–83; PULSE 54–65; RESP 17–24; TEMP 97.5–99.1; O2SAT 92–95
[2023-12-04] MEDS: LoSARTan 25 MG TABLET PO SCH (22:37)
[2023-12-05] VITALS (13 sets, daily range): BP systolic 141–160; BP diastolic 69–80; PULSE 53–65; RESP 17–20; TEMP 97.1–98.5; O2SAT 94–96
[2023-12-05 05:55] LABS: HEMATOCRIT 36.5 % (42-54); MEAN CORPUSCULAR HEMOGLOBIN 33.6 pg (27.0-33.0); MEAN CORPUSCULAR HGB CONC 34.2 g/dL (32.0-36.0); MEAN CORPUSCULAR VOLUME 98.1 fL (79-99); RED BLOOD CELL COUNT(AUTO) 3.72 MIL/uL (4.50-6.20); WHITE BLOOD COUNT (AUTO) 9.3 K/uL (4.8-10.8)
[2023-12-05 06:28] LABS: ALBUMIN 1.7 g/dL (3.5-5.0); BILIRUBIN,TOTAL 0.7 mg/dL (0.2-1.0); CREATININE 0.8 mg/dL (0.5-1.3); POTASSIUM 3.8 mmol/L (3.5-5.1); TOTAL PROTEIN, SERUM 5.5 g/dL (6.0-8.3)
[2023-12-05] MEDS: acetaMINOPHEN 325 MG TAB PO PRN (11:25)
[2023-12-05] MEDS: LoSARTan 50 MG TABLET PO SCH (20:32)
[2023-12-05] MEDS: BALSAM PERU/CASTOR OIL 60 GM TUBE TP SCH (20:32)
[2023-12-06] VITALS (14 sets, daily range): BP systolic 129–170; BP diastolic 70–91; PULSE 58–75; RESP 18–20; TEMP 97.4–98.4; O2SAT 95–99
[2023-12-06] MEDS: hydrALAZine 25MG TABLET PO SCH (09:10)
[2023-12-06] MEDS ORDERED: hydrALAZine 20MG/ML VIAL IV PRN (10:00)
[2023-12-07] VITALS (9 sets, daily range): BP systolic 124–159; BP diastolic 67–94; PULSE 64–83; RESP 17–22; TEMP 97.9–98.4; O2SAT 95
== END 2023-12-07 17:45 | DRG 871 ==
LOC: EDH 16:50 → EDHIP 21:11 → 2CH 23:34 → 2DH 12-01 12:00 → 4CH 12-03 16:40
PROVIDERS: ADMIT Internal Medicine; ATTEND Internal Medicine
PROC: 0BH17EZ Insertion of Endotracheal Airway into Trachea, Via Natural or Artificial Opening (ICD-10-PCS; principal; 2023-11-27)
PROC: 5A1935Z Respiratory Ventilation, Less than 24 Consecutive Hours (ICD-10-PCS; 2023-11-27)
PROC: 5A09357 Assistance with Respiratory Ventilation, Less than 24 Consecutive Hours, Continuous Positive Airway Pressure (ICD-10-PCS; 2023-11-28)
PROC: 5A1935Z Respiratory Ventilation, Less than 24 Consecutive Hours (ICD-10-PCS; 2023-11-29)
PROC: 4A00X4Z Measurement of Central Nervous Electrical Activity, External Approach (ICD-10-PCS; 2023-11-29)
PROC: 5A09357 Assistance with Respiratory Ventilation, Less than 24 Consecutive Hours, Continuous Positive Airway Pressure (ICD-10-PCS; 2023-11-29)
PROC: 5A09357 Assistance with Respiratory Ventilation, Less than 24 Consecutive Hours, Continuous Positive Airway Pressure (ICD-10-PCS; 2023-12-01)
DX: A41.9 Sepsis, unspecified organism (principal); G93.41 Metabolic encephalopathy; J96.01 Acute respiratory failure with hypoxia; R65.21 Severe sepsis with septic shock; J15.211 Pneumonia due to Methicillin susceptible Staphylococcus aureus; E46 Unspecified protein-calorie malnutrition; J98.11 Atelectasis; Z20.822 Contact with and (suspected) exposure to COVID-19; E03.9 Hypothyroidism, unspecified; G40.909 Epilepsy, unspecified, not intractable, without status epilepticus; E86.1 Hypovolemia; E78.00 Pure hypercholesterolemia, unspecified; E86.0 Dehydration; Z68.37 Body mass index [BMI] 37.0-37.9, adult; K80.20 Calculus of gallbladder without cholecystitis without obstruction; I10 Essential (primary) hypertension; Z53.9 Procedure and treatment not carried out, unspecified reason; Z82.49 Family history of ischemic heart disease and other diseases of the circulatory system; Z88.5 Allergy status to narcotic agent; Z83.3 Family history of diabetes mellitus; Z91.041 Radiographic dye allergy status; Z88.8 Allergy status to other drugs, medicaments and biological substances
CPT/HCPCS: 31500; 36415; 36600; 70450; 71045; 71250; 76700; 80048; 80053; 80076; 80202; 81001; 82140; 82435; 82803; 82947; 82948; 83605; 83735; 83880; 84132; 84145; 84295; 84484; 85018; 85025; 85027; 85378; 85610; 85730; 87040; 87071; 87086; 87186; 87205; 87635; 87804; 93005; 93306; 93970; 94002; 94003; 94150; 94640; 94660; 94664; 95822; 96365; 96375; G0378; J0360; J0692; J1644; J1940; J1953; J1956; J2250; J2470; J2704; J3010; J3370; J3475; J3480; J3490; A4600; A9900